=== PATIENT | female | born 1970 | race Caucasian/White ===

== ENCOUNTER → 2023-12-23 08:00 | Outpatient (BNVA) | payer OTHER, SELFPAY | PROVIDERS: PCP Family Medicine; Referring Provider Family Medicine; Visit Provider Student in an Organized Health Care Education/Training Program | DX: M23.91 Unspecified internal derangement of right knee (principal) | CPT/HCPCS: 20610; 99213; J1010 ==

== ENCOUNTER 2024-06-27 02:46 | Outpatient (CLI) | payer OTHER, SELFPAY ==
[2024-06-27] MEDS: Levalbuterol HFA 15 GM INH 4 PUFF IH (11:31)
[2024-06-27] MEDS: Inhaler, Assist Device 1 EACH MC (11:31)
--- NOTE | 2024-06-27 14:42 | W.PFT ---
Date of service: 06/27/24 Time of Service: 10:04 Pulmonary Function Test Result Indications: Dyspnea on exertion Interpretation Spirometry: No airflow limitation. No bronchodilator response. Lung Volumes: Normal lung volumes Diffusion Capacity: Normal diffusion Airway Pressure: Normal resistance Impression Normal pulmonary function testing Clinical Correlation therefore is recommended.
== END 2024-06-27 02:47 | disposition home or self-care (01) ==
LOC: RT 02:47
PROVIDERS: PCP Family Medicine; Visit Provider Physician Assistant Surgical
DX: K21.9 Gastro-esophageal reflux disease without esophagitis (principal); R05.3 Chronic cough
CPT/HCPCS: 94060; 94726; 94729